=== PATIENT | male | born 1965 | race Two or more races ===

== ENCOUNTER 2016-04-11 20:45 | Emergency (ER) | payer BC, MEDICAID ==
[~2016-04-11] VITALS: Ht 177.8 cm; Wt 81.6 kg
[~2016-04-11 20:45] MED LIST: ATOR10TA PO; CARV12.52 PO; ELET40TA PO; EMTR1TAB12 PO; LORA0.5T PO; PANT40TA4 PO; RALT400T PO
[2016-04-11 23:10] VITALS: BP 169/94
== END 2016-04-11 23:11 | disposition home or self-care (01) ==
LOC: ER 20:51
DX: J06.9 Acute upper respiratory infection, unspecified (principal); I10 Essential (primary) hypertension; Z91.013 Allergy to seafood
CPT/HCPCS: 99282; A4606; Z7610

== ENCOUNTER 2016-08-16 19:48 | Inpatient (IN) | payer SELFPAY ==
[~2016-08-16] VITALS: Ht 172.7 cm; Wt 81.6 kg
--- NOTE | 2016-08-16 19:53 | NUR ---
PT AMBULATORY TO ER BED 11. C/O DIFFUSE ABDOMINAL PAIN W/ N/V/D X TODAY. HX OF BOWEL OBSTRUCTION. LAST VOMITTED THIS AFTERNOON. DENIES ETOH. STABLE VITALS. AWAITING MD WILKES.
--- NOTE | 2016-08-16 20:22 | NUR ---
CLIVE CRUZ AT BEDSIDE FOR EVAL.
[2016-08-16] MEDS ORDERED: IV NS 0.9% 1,000 ML BAG IV ONE (20:30)
[2016-08-16] MEDS ORDERED: HYDROMORPHONE INJ 2 MG/ML DISP.SYRIN IV ONE (20:30)
[2016-08-16] MEDS ORDERED: ONDANSETRON HCL/PF 4 MG/2 ML VIAL IVP ONE (20:30)
[2016-08-16] MEDS ORDERED: IV NS 0.9% 1,000 ML ONE (20:31)
[2016-08-16] MEDS ORDERED: ONDANSETRON HCL/PF 4 MG/2 ML VIAL ONE (20:31)
[2016-08-16] MEDS ORDERED: IV SET PRIMARY 1 EA INFUS.SET MC ONE (20:31)
[2016-08-16] MEDS ORDERED: HYDROMORPHONE 1 MG/1 ML DISP.SYRIN ONE (20:31)
[2016-08-16 20:36] LABS: BASOPHILS % (AUTO) 0.2 % (0.0-2.0); EOSINOPHILS # (AUTO) 0.1 /CMM (0.0-0.7); EOSINOPHILS % (AUTO) 0.7 % (0.0-6.0); HEMATOCRIT 47 % (39-51); HEMOGLOBIN 15.8 g/dL (13.5-17.5); LYMPHOCYTES # (AUTO) 0.9 /CMM (0.8-4.8); LYMPHOCYTES % (AUTO) 10.1 % (20.0-44.0); MEAN CORPUSCULAR HEMOGLOBIN 28 PG (26.0-33.0); MEAN CORPUSCULAR HGB CONC 34 g/dl (31.0-36.0); MEAN CORPUSCULAR VOLUME 84 fL (80-96); MONOCYTES # (AUTO) 0.4 /CMM (0.1-1.30); NEUTROPHILS # (AUTO) 7.5 /CMM (1.8-8.9); PLATELET COUNT (AUTO) 124 /CMM (150-450); RDW COEFFICIENT OF VARIATION 13.7 (11.5-15.0); RED BLOOD CELL COUNT(AUTO) 5.59 MIL/uL (4.5-6.0); WHITE BLOOD COUNT (AUTO) 8.9 K/uL (4.3-11.0)
[2016-08-16 20:53] LABS: ALBUMIN 3.6 g/dL (3.4-5.0); BILIRUBIN,DIRECT 0.2 mg/dL (0.0-0.2); BILIRUBIN,TOTAL 0.7 mg/dL (0.2-1.0); CALCIUM, SERUM 9.1 mg/dL (8.5-10.1); POTASSIUM 4.1 mmol/L (3.5-5.1); TOTAL PROTEIN, SERUM 7.6 g/dL (6.4-8.2)
[2016-08-16] MEDS ORDERED: IV NS 0.9% 250 ML IV ONE (21:11)
[2016-08-16] MEDS ORDERED: CT SWABBABLE VALVE TRANS SET 1 EA INFUS.SET MC ONE (21:12)
[2016-08-16] MEDS ORDERED: IOHEXOL-300 100 ML VIAL IV ONE (21:12)
[2016-08-16] MEDS ORDERED: methylPREDNISolone SOD SUCC 125 MG/2ML VIAL IV ONE (21:30)
[2016-08-16] MEDS ORDERED: diphenhydrAMINE HCL 50 MG/ML VIAL IV ONE (21:30)
[2016-08-16] MEDS ORDERED: methylPREDNISolone SOD SUCC 125 MG/2ML VIAL ONE (21:31)
[2016-08-16] MEDS ORDERED: diphenhydrAMINE HCL 50 MG/ML VIAL ONE (21:31)
--- NOTE | 2016-08-16 21:47 | NUR ---
PT TO RADIOLOGY FOR CT ABDOMEN W. CONTRAST.
--- NOTE | 2016-08-16 22:52 | NUR ---
PAGED ICE BAG ASSEMBLER FOR PANEL ANOOP MOORE NP
--- NOTE | 2016-08-16 23:02 | NUR ---
REPORT GIVEN TO ROSARIO. PT AWAITING TRANSFER TO FLOOR.
[2016-08-16 23:25] VITALS: BP 145/90
[2016-08-16] MEDS ORDERED: ACETAMINOPHEN 325 MG TABLET PO PRN (23:30)
[2016-08-16] MEDS ORDERED: ZOLPIDEM TARTRATE 5 MG TABLET PO PRN (23:30)
[2016-08-16] MEDS ORDERED: MAGNESIUM HYDROXIDE 30 ML UDC PO PRN (23:30)
[2016-08-16] MEDS ORDERED: PANTOPRAZOLE 40 MG VIAL IV SCH (23:30)
[2016-08-17] MEDS ORDERED: IV SET PRIMARY PUMP SET 1 EA INFUS.SET MC ONE (00:09)
[2016-08-17] MEDS ORDERED: PANTOPRAZOLE 40 MG VIAL ONE (00:09)
[2016-08-17] MEDS ORDERED: IV NS 0.9% 1,000 ML ONE (00:09)
[2016-08-17] MEDS: IV NS 0.9% 1,000 ML IV PRN ×2 (00:14→14:25)
[2016-08-17] MEDS ORDERED: HYDROMORPHONE 1 MG/1 ML DISP.SYRIN ONE ×2 (00:34→06:08)
[2016-08-17] MEDS ORDERED: ONDANSETRON HCL/PF 4 MG/2 ML VIAL ONE ×2 (00:34→06:08)
[2016-08-17] MEDS: ONDANSETRON HCL/PF 4 MG/2 ML VIAL IVP PRN ×2 (00:38→06:14)
[2016-08-17] MEDS: HYDROMORPHONE 1 MG/1 ML DISP.SYRIN IV PRN ×2 (00:39→06:14)
--- NOTE | 2016-08-17 06:29 | NUR ---
MS RN NOTES AWAKE & RESPONSIVE. NOT IN ANY DISTRESS. NO SOB NOTED. DENIES ANY PAIN OR DISCOMFORT AT THIS TIME. WITH IVF INFUSING WELL. WITH GT TO LIS DRAINING BROWNISH OUTPUT. CALL LIGHT WITHIN REACH. BED IN LOWEST POSITION. SR UP X 2 FOR SAFETY. WILL ENDORSE TO NEXT SHIFT.
[2016-08-17 06:56] LABS: BASOPHILS % (AUTO) 0.1 % (0.0-2.0); HEMATOCRIT 45 % (39-51); HEMOGLOBIN 14.7 g/dL (13.5-17.5); LYMPHOCYTES # (AUTO) 0.7 /CMM (0.8-4.8); MEAN CORPUSCULAR HEMOGLOBIN 28 PG (26.0-33.0); MEAN CORPUSCULAR HGB CONC 33 g/dl (31.0-36.0); MEAN CORPUSCULAR VOLUME 86 fL (80-96); MONOCYTES % (AUTO) 0.3 % (2.0-12.0); NEUTROPHILS % (AUTO) 90.6 % (43.0-81.0); RDW COEFFICIENT OF VARIATION 14.4 (11.5-15.0); RED BLOOD CELL COUNT(AUTO) 5.28 MIL/uL (4.5-6.0); WHITE BLOOD COUNT (AUTO) 7.7 K/uL (4.3-11.0)
--- NOTE | 2016-08-17 07:05 | NUR ---
MS RN OPENING NOTES RECEIVED PT. FROM NIGHTSHIFT NURSE IN STABLE CONDITION. AWAKE, AND LYING COMFORTABLY IN BED. PT. IS A/O X4. NO SOB OR SIGNS OF DISTRESS AT THIS TIME. DENIES ANY ABDOMINAL PAIN AT THIS TIME. IV PRESENT ON RIGHT FOREARM 18G PATENT AND INTACT INFUSING NS @ 75ML PER HOUR. NGT INTACT TO CONNECTED TO LOW INTERMITTENT SUCTION. BROWN GASTRIC CONTENT PRESENT IN SUCTION CONTAINER. BED IN LOW LOCKED POSITION, SIDE RAILS UP X2, CALL LIGHT WITHIN REACH. WILL CONTINUE TO MONITOR.
[2016-08-17 07:16] LABS: CALCIUM, SERUM 8.7 mg/dL (8.5-10.1); CREATININE 0.9 mg/dL (0.6-1.3); MAGNESIUM 1.9 mg/dL (1.8-2.4); PHOSPHORUS 2.5 mg/dL (2.5-4.9); POTASSIUM 4.4 mmol/L (3.5-5.1)
[2016-08-17 08:00] VITALS: BP 136/86
--- NOTE | 2016-08-17 08:24 | NUR ---
MS RN NOTES LAB CALLED REGARDING LOW PLATELET COUNT OF 36. ROMI THE PRODUCTION STATISTICAL CLERK WAS NOTIFIED. NO NEW ORDERS WERE GIVEN AT THIS TIME. WILL CONTINUE TO MONITOR AND ASSESS FOR SIGNS OF BLEEDING.
[2016-08-17 09:00] VITALS: BP 136/86
[2016-08-17] MEDS ORDERED: EMTRICITABINE/TENOFOVIR 1 TAB PO SCH ×3 (09:00→18:10)
[2016-08-17] MEDS ORDERED: LORAZEPAM 0.5 MG TABLET PO SCH (09:00)
[2016-08-17] MEDS ORDERED: RALTEGRAVIR POTASSIUM 400 MG TABLET PO SCH ×3 (09:00→18:11)
[2016-08-17] MEDS ORDERED: CARVEDILOL 12.5 MG TABLET PO SCH ×2 (09:00)
[2016-08-17] MEDS ORDERED: TIVICAY PO SCH (09:30)
[2016-08-17] MEDS ORDERED: OXCARBAZEPINE 150 MG TABLET PO SCH ×2 (09:30→22:00)
[2016-08-17 10:56] LABS: PLATELET COUNT (AUTO) 194 /CMM (150-450)
--- NOTE | 2016-08-17 11:04 | NUR ---
MS RN NOTES PT.'S LAB WERE REDRAWN TO VERIFY LOW PLATELET COUNT. NEW RESULTS REVEALED A PLATELET COUNT OF 194. ROMI NOTIFIED.
[2016-08-17 13:42] LABS: BAND % (MANUAL) 1 % (0.0-5.0); LYMPHOCYTES % (MANUAL) 9 % (16-48); MONOCYTES % (MANUAL) 1 % (0-11.0); NEUTROPHILS % (MANUAL) 89 (42-76)
--- NOTE | 2016-08-17 17:43 | NUR ---
MS RN NOTES PT. STATED THAT HE DOES NOT WANT THE HIV MEDICATIONS WHICH WERE PRESCRIBED TO HIM HERE AT THE HOSPITAL. THESE MEDS INCLUDE TRUVADA AND ISENTRESS. STATES THAT THE MEDS HE TAKES AT HOME ARE OF A HIGHER CLASS AND WORK BETTER. ALSO STATES THAT BOTH TRUVADA AND ISENTRESS UPSET HIS STOMACH. THE PT. WAS ASKED IF SOMEONE FROM HOME CAN BRING THE MEDS HE TAKES BUT STATES THAT NO ONE WILL BE ABLE TO BRING IT UNTIL WEDNESDAY. ANN FROM PHARMACY CAME UP TO TALK TO THE PT. ABOUT HIS MEDICATIONS. PT. AGREED TO TAKE THE TRUVADA AND ISENTRESS WITH JARED. ROMI APPROVED OF HIM TAKING THESE MEDICATIONS BY MOUTH ALONG WITH HIS ANTI SEIZURE MEDICATION.
[2016-08-17] MEDS ORDERED: ATORVASTATIN 10 MG TABLET PO SCH (18:00)
[2016-08-17] MEDS ORDERED: ONDANSETRON HCL/PF 4 MG/2 ML VIAL IV PRN (18:00)
[2016-08-17] MEDS ORDERED: EMTRICITABINE 200 MG CAPSULE PO SCH (18:12)
[2016-08-17] MEDS ORDERED: TENOFOVIR DISOPROXIL FUMARATE 300 MG TABLET PO SCH (18:13)
--- NOTE | 2016-08-17 18:23 | NUR ---
MS RN NOTES PT. ASKED IF HE CAN WALK AROUND THE UNIT ADVISED BY DR. RUSSELL. WHEN THE NG TUBE WAS DISCONNECTED, HE STATED THAT HE WOULD LIKE IT REMOVED BECAUSE NOTHING IS COMING OUT AND IT MAKES HIM FEEL NAUSEOUS. ROMI WAS PAGED TO ASK IF NG CAN BE REMOVED. AWAITING CALL BACK FROM ROMI
--- NOTE | 2016-08-17 19:30 | NUR ---
MS RN CLOSING NOTES PT. IS REFUSING FURTHER TREATMENTS AT THIS TIME. HE PULLED OUT HIS NG TUBE AGAINST MEDICAL ADVICE AND STATES THAT HE WANTS TO LEAVE AMA. HIV MEDICATIONS HAVE NOT BEEN ADMINISTERED AND WHEN ASKED, PT STATES THAT WHEN HE LEAVES HE WILL TAKE THE RIGHT MEDICATIONS AT HOME. AND CANCER RESEARCHER WERE BOTH NOTIFIED OF PT.S REQUEST TO LEAVE AMA BY SHAUNA THE NIGHTSNMFT NURSE. WILL ENDORSE TO SHAUNA FOR JOSE
== END 2016-08-17 20:00 | disposition left against medical advice (07) | DRG 395 ==
LOC: ER 19:48 → MEDSG2 22:59
PROVIDERS: ADMIT Nurse Practitioner Acute Care; ATTEND Nurse Practitioner Acute Care
DX: K42.0 Umbilical hernia with obstruction, without gangrene (principal); G40.909 Epilepsy, unspecified, not intractable, without status epilepticus; I10 Essential (primary) hypertension; F41.9 Anxiety disorder, unspecified; K57.30 Diverticulosis of large intestine without perforation or abscess without bleeding
CPT/HCPCS: 36415; 80048-TC; 80061-TC; 80076-TC; 82962-TC; 83690-TC; 83735-TC; 84100-TC; 85025-TC; 87081-TC; A4606; C9113; J1170; J1200; J2405; J2930; J7030; J7050; Q9967; Z7610

== ENCOUNTER 2016-10-25 16:00 | Inpatient (IN) | payer SELFPAY ==
[~2016-10-25] VITALS: Ht 167.6 cm; Wt 68.6 kg
[2016-10-25] MEDS ORDERED: ONDANSETRON HCL/PF 4 MG/2 ML VIAL ONE (16:11)
[2016-10-25] MEDS ORDERED: HYDROMORPHONE 1 MG/1 ML DISP.SYRIN ONE (16:11)
[2016-10-25 16:14] LABS: BASOPHILS # (AUTO) 0.5 /CMM (0.0-0.2); BASOPHILS % (AUTO) 4.2 % (0.0-2.0); EOSINOPHILS # (AUTO) 0.1 /CMM (0.0-0.7); EOSINOPHILS % (AUTO) 0.9 % (0.0-6.0); HEMATOCRIT 50 % (39-51); HEMOGLOBIN 16.9 g/dL (13.5-17.5); LYMPHOCYTES # (AUTO) 1.5 /CMM (0.8-4.8); LYMPHOCYTES % (AUTO) 12.3 % (20.0-44.0); MEAN CORPUSCULAR HEMOGLOBIN 28 PG (26.0-33.0); MEAN CORPUSCULAR HGB CONC 34 g/dl (31.0-36.0); MEAN CORPUSCULAR VOLUME 84 fL (80-96); MONOCYTES # (AUTO) 0.5 /CMM (0.1-1.30); MONOCYTES % (AUTO) 3.9 % (2.0-12.0); NEUTROPHILS # (AUTO) 9.3 /CMM (1.8-8.9); NEUTROPHILS % (AUTO) 78.7 % (43.0-81.0); PLATELET COUNT (AUTO) 249 /CMM (150-450); RDW COEFFICIENT OF VARIATION 14.1 (11.5-15.0); RED BLOOD CELL COUNT(AUTO) 5.98 MIL/uL (4.5-6.0); WHITE BLOOD COUNT (AUTO) 11.9 K/uL (4.3-11.0)
--- NOTE | 2016-10-25 16:15 | NUR ---
pt rec'd to er in severe pain abd thrashing , monitors applied iv started 20 left fa labs and cultures done ekg . iv ns bolus given and dilaudid 1 mg ivp zofran 4 mg ivp
[2016-10-25 16:24] LABS: CALCIUM, SERUM 9.7 mg/dL (8.5-10.1); CREATININE 1.3 mg/dL (0.6-1.3)
[2016-10-25 16:29] LABS: ALBUMIN 4.5 g/dL (3.4-5.0); BILIRUBIN,DIRECT 0.1 mg/dL (0.0-0.2); BILIRUBIN,TOTAL 0.6 mg/dL (0.2-1.0); TOTAL PROTEIN, SERUM 8.8 g/dL (6.4-8.2)
--- NOTE | 2016-10-25 16:29 | NUR ---
pt was seen before for smae c/o and seen a surgeon and left ama . pt seems to be quiet and pain 6/10 o2 sarts 100 2n/c 2l
[2016-10-25] MEDS ORDERED: ONDANSETRON HCL/PF 4 MG/2 ML VIAL IVP ONE (16:30)
[2016-10-25] MEDS ORDERED: IV NS 0.9% 1,000 ML BAG IV ONE ×2 (16:30→18:30)
[2016-10-25] MEDS ORDERED: HYDROMORPHONE INJ 2 MG/ML DISP.SYRIN IV ONE (16:30)
[2016-10-25 16:38] LABS: PROTHROMBIN TIME 10.4 SECS (9.5-12.7)
--- NOTE | 2016-10-25 16:53 | NUR ---
pt sent to ct
[2016-10-25] MEDS ORDERED: IOHEXOL-300 100 ML VIAL IV ONE (16:55)
[2016-10-25] MEDS ORDERED: IV NS 0.9% 250 ML IV ONE (16:55)
[2016-10-25] MEDS ORDERED: DOLU50TA PO (17:42)
[2016-10-25] MEDS ORDERED: EMTR1TAB17 PO (17:42)
--- NOTE | 2016-10-25 17:58 | NUR ---
PAGED ANN ARMANDO FOR PANEL ADMISSION
--- NOTE | 2016-10-25 17:59 | NUR ---
ng tube inserted 16fr placement noted to suction dark brown abd softer AWAITING EVALUATION BY ER PROVIDER.
--- NOTE | 2016-10-25 18:01 | NUR ---
xray called for palcement
--- NOTE | 2016-10-25 18:30 | NUR ---
no bolus up 2 nd bag 1000cc
--- NOTE | 2016-10-25 18:58 | NUR ---
INFORMED NURSING POWER PLANT MECHANIC OF NEED FOR M/S BED
--- NOTE | 2016-10-25 19:02 | NUR ---
pt was to be left alone . not able to give ua at this time
--- NOTE | 2016-10-25 20:00 | NUR ---
Patient refused to have the ngt advanced per recommendation in the xr post placement. Per patient, "Please let me regroup. Dont touch the ng tube please." Encouraged the patient x3. Explained risk and benefits of advancing ng tube. Patient still refused. Endorsed to Lacie BRADLEY.
--- NOTE | 2016-10-25 20:09 | NUR ---
Report given to Lacie BRADLEY for rios.
--- NOTE | 2016-10-25 20:16 | NUR ---
MS/RN NOTES RECEIVED PT. FROM ER VIA CARL. PT. IS AWAKE, ALERT AND ORIENTED X3. BREATHING EVEN AND UNLABORED. NO SOB, RESPIRATORY DISTRESS OR COMPLAINTS OF PAIN NOTED AT THIS TIME. ORIENTED PT. TO ROOM. PT. WITH NG TUBE PRESENT TO RIGHT NARE. PT. DOES NOT WANT NG-TUBE TO BE TOUCHED AT THIS TIME. PT. WITH LEFT FOREARM 20 GAUGE IV SALINE LOCK PRESENT, PATENT AND INTACT. BED IN LOWEST POSITION, CALL LIGHT WITHIN REACH. AWAITING ADMITTING ORDERS. WILL CONTINUE TO MONITOR.
--- NOTE | 2016-10-25 20:35 | NUR ---
MS/RN NOTES PT. REFUSING BODY CHECK. PT. STATES HE WANTS TO BE LEFT ALONE TO SLEEP. WILL ATTEMPT AGAIN AT A LATER TIME. PT. APPEARS COMFORTABLE AT THE MOMENT. WILL CONTINUE TO MONITOR.
--- NOTE | 2016-10-25 21:24 | NUR ---
MS/RN NOTES [facility]ED [facility] AND SPOKE WITH SEEMA COLON. AWAITING ADMISSION ORDERS. WILL CONTINUE TO MONITOR.
[2016-10-25 22:00] VITALS: BP 166/96
[2016-10-25] MEDS ORDERED: Z GUARD REMEDY 2 OZ OINT TP PRN (22:30)
[2016-10-25] MEDS ORDERED: ACETAMINOPHEN 325 MG TABLET PO PRN (22:30)
[2016-10-25] MEDS ORDERED: HYDROMORPHONE INJ 2 MG/ML DISP.SYRIN IV PRN (22:30)
[2016-10-25] MEDS ORDERED: LORAZEPAM INJ 2 MG/ML VIAL IV PRN (22:30)
[2016-10-25] MEDS ORDERED: BISACODYL SUPP (10 MG) 10 MG/SUPP.RECT SUPP.RECT RC PRN (22:30)
[2016-10-25] MEDS ORDERED: ONDANSETRON HCL/PF 4 MG/2 ML VIAL IVP PRN (22:30)
--- NOTE | 2016-10-25 23:10 | NUR ---
MS/RN NOTES EXPLAINED AND EDUCATED PT. ABOUT MD ORDER TO FURTHER INSERT NG-TUBE TO PROPER POSITIONING AND CONNECTING NG-TUBE TO SUCTION. OFFERED PT. PRN MEDICATION PRIOR TO FURTHER INSERTING NG-TUBE. PT. REFUSING FURTHER NG-TUBE INSERTION. PT. REFUSING TO LET NURSE TOUCH NG-TUBE. PT. IS UPSET AND WANTS TO BE LEFT ALONE. WILL CONTINUE TO MONITOR.
[2016-10-26] MEDS ORDERED: IV PREMIX D5 1/2NS + KCL 1,000 ML IV ONE (00:48)
--- NOTE | 2016-10-26 01:15 | NUR ---
MS/RN NOTES PT. CONTINUES TO REFUSE TO HAVE HIS NG-TUBE FURTHER INSERTED. PT. STATED "IT DOESN'T NEED TO BE TOUCHED, ITS OK, JUST LEAVE ME ALONE". PT. HAS NO COMPLAINTS OF PAIN, NAUSEA OR VOMITING AT THIS TIME. WILL ATTEMPT AGAIN AT A LATER TIME. WILL CONTINUE TO MONITOR.
[2016-10-26] MEDS: Potassium Chloride 20 MEQ in IV D5/0.45 NACL 1,000 ML IV PRN ×2 (01:36→17:55)
--- NOTE | 2016-10-26 06:43 | NUR ---
MS/RN NOTES PT. IS LYING IN BED RESTING. EASILY AROUSABLE TO NAME. BREATHING EVEN AND UNLABORED. NO SOB, RESPIRATORY DISTRESS OR COMPLAINTS OF PAIN NOTED AT THIS TIME. PT. WITH NG TUBE PRESENT TO RIGHT NARE. PT. DOES NOT WANT NG-TUBE TO BE TOUCHED AT THIS TIME. PT. CONTINUES TO REFUSE FURTHER INSERTING NG-TUBE INTO PROPER POSITION. PT. IS REFUSING BLOOD DRAW FOR LABS STATING HE WANTS TO SPEAK TO THE DOCTOR FIRST. EDUCATED PT. ON IMPORTANCE OF OBTAINING BLOOD FOR LABS. PT. CONTINUES TO REFUSE. PT. WITH LEFT FOREARM 20 GAUGE PERIPHERAL IV PRESENT, PATENT AND INTACT ADMINISTERING TO PT. D5 1/2 NS WITH 20 MEQ KCL @ 100 ML/HR. ALL PT. NEEDS MET. BED IN LOWEST POSITION, CALL LIGHT WITHIN REACH. AWAITING ADMITTING ORDERS. WILL CONTINUE TO MONITOR. Addendum: 10/26/16 at 0649 by VIJI YUAN RN WILL ENDORSE TO [facility] NURSE FOR CONTINUITY OF CARE.
--- NOTE | 2016-10-26 07:18 | NUR ---
MS/RN OPENING NOTES PATIENT RECEIVED RESTING IN BED IN NO ACUTE SIGNS OF DISTRESS. A/O X 3 AND VERBALLY RESPONSIVE, NO C/O VOICED AT THIS TIME. ON 02 VIA N/C AT 2LPM, BREATHING EVEN AND UNLABORED. PT. WITH NG-TUBE TO RIGHT NARE AND NEEDS TO BE ADVANCED FOR 10-15CM TO ENSURE PROPER PLACEMENT BUT PT DIDN'T WANT NG-TUBE TO BE TOUCHED AT THIS TIME. IV ACCESS ON LFA G#20, PATENT AND INTACT WITH D5 1/2 NS WITH 20 MEQ KCL @ 100 ML/HR INFUSING, NO SIGNS OF INFILTRATION NOTED. PT STILL REFUSING BLOOD DRAW FOR LABS DESPITE COUNSELING ON THE IMPORTANCE OF OBTAINING BLOOD FOR LABS, STATED HE WANTS TO SPEAK TO THE DOCTOR FIRST. BED IN LOWEST POSITION AND LOCKED, CALL LIGHT WITHIN REACH. WILL CONTINUE TO MONITOR PT ACCORDINGLY.
[2016-10-26 08:00] VITALS: BP 152/89
[2016-10-26] MEDS: PANTOPRAZOLE 40 MG VIAL IV SCH (08:17)
[2016-10-26] MEDS ORDERED: DIATR MEGLU/DIATRIZOATE SODIUM 120 ML BOTTLE (GASTROGRAPHIN) ONE (09:37)
[2016-10-26] MEDS ORDERED: BARIUM SULFATE 98% 135 ML SUSP.RECON PO ONE (09:37)
--- NOTE | 2016-10-26 10:07 | NUR ---
PATIENT BROUGHT DOWN FOR SMALL BOWEL FOLLOW THROUGH. SALES INCENTIVE ANALYST KUB WAS DONE AND WAS FOUND THAT NGT NEEDED TO BE ADVANCED, PER RADIOLOGIST. PATIENT REFUSING TO CONTINUE WITH EXAM UNTIL HE SPEAKS WITH ORDERING PHYSICIAN. RN AWARE.
--- NOTE | 2016-10-26 13:36 | NUR ---
RN NOTES PATIENT WENT FOR X-RAY OF SMALL BOWEL FOLLOW THROUGH AFTER ADVANCING ABOUT 12CM OF NG-TUBE TO RIGHT NARE. RESULTS STILL PENDING WILL FOLLOW-UP.
[2016-10-26 14:48] LABS: BASOPHILS % (AUTO) 0.1 % (0.0-2.0); EOSINOPHILS # (AUTO) 0.2 /CMM (0.0-0.7); EOSINOPHILS % (AUTO) 1.8 % (0.0-6.0); HEMATOCRIT 45 % (39-51); HEMOGLOBIN 14.6 g/dL (13.5-17.5); LYMPHOCYTES # (AUTO) 1.1 /CMM (0.8-4.8); LYMPHOCYTES % (AUTO) 12.3 % (20.0-44.0); MEAN CORPUSCULAR HEMOGLOBIN 28 PG (26.0-33.0); MEAN CORPUSCULAR HGB CONC 33 g/dl (31.0-36.0); MEAN CORPUSCULAR VOLUME 85 fL (80-96); MONOCYTES # (AUTO) 0.7 /CMM (0.1-1.30); MONOCYTES % (AUTO) 7.8 % (2.0-12.0); NEUTROPHILS # (AUTO) 6.9 /CMM (1.8-8.9); PLATELET COUNT (AUTO) 214 /CMM (150-450); RDW COEFFICIENT OF VARIATION 15.2 (11.5-15.0); RED BLOOD CELL COUNT(AUTO) 5.21 MIL/uL (4.5-6.0); WHITE BLOOD COUNT (AUTO) 8.8 K/uL (4.3-11.0)
[2016-10-26 15:41] LABS: THYROID STIMULATING HORMONE 0.438 uIU/mL (0.358-3.74)
[2016-10-26 15:57] LABS: BILIRUBIN,TOTAL 0.6 mg/dL (0.2-1.0); PHOSPHORUS 2.3 mg/dL (2.5-4.9); POTASSIUM 4.3 mmol/L (3.5-5.1); TOTAL PROTEIN, SERUM 7.2 g/dL (6.4-8.2)
[2016-10-26 16:00] VITALS: BP_SYST 151; BP_DIAS 86; BP_DIAS 88
[2016-10-26 16:04] LABS: ALBUMIN 3.3 g/dL (3.4-5.0); CALCIUM, SERUM 8.4 mg/dL (8.5-10.1); MAGNESIUM 2.3 mg/dL (1.8-2.4)
--- NOTE | 2016-10-26 17:07 | NUR ---
RN NOTES SPOKE TO DR ARMANDO REGARDING PT'S X-RAY OF SMALL BOWEL RESULTS WHICH IS NEGATIVE FOR OBSTRUCTION. HE ORDERED TO REMOVE NG-TUBE AND START ON CLEAR LIQUID DIET, ORDERED CARRIED OUT. WILL CONTINUE TO MONITOR.
--- NOTE | 2016-10-26 18:40 | NUR ---
MS/RN CLOSING NOTES PATIENT ASLEEP IN BED AT THIS TIME, EASILY AWAKENS. A/O X 3 AND VERBALLY RESPONSIVE. HOB KEPT ELEVATED. ON 02 VIA N/C AT 2LPM, BREATHING EVEN AND UNLABORED WITH NO SOB NOTED. IV ACCESS ON LFA G#20, PATENT AND INTACT WITH D5 1/2 NS WITH 20 MEQ KCL @ 100 ML/HR INFUSING WELL, NO SIGNS OF INFILTRATION NOTED. BED IN LOWEST POSITION AND LOCKED, CALL LIGHT WITHIN REACH. ALL NEEDS AND CARE ATTENDED WELL. WILL ENDORSED TO FRUIT PEELER NURSE FOR JOSE.
--- NOTE | 2016-10-26 19:30 | NUR ---
MS RN INITIAL NOTE RECEIVED PT AWAKE AND ALERT, ORIENTED X3, NORCO LAST GIVEN AT 1800, PT CONFIRMS THAT IS HAS BEEN EFFECTIVE FOR HER BACK PAIN, NO RESPIRATORY DISTRESS NOTED DURING PHYSICAL ASSESSMENT, PT IS COMFORTABLE AND COOPERATIVE WITH CARE, SHE IS AMBULATORY WITH ASSIST AND ABLE TO USE THE BEDSIDE COMMODE, SHE IS CLEAN/DRY AND ALL NEEDS HAVE BEEN ATTENDED TO, SAFETY MEASURES WILL BE MAINTAINED AT ALL TIMES, WILL CONTINUE TO MONITOR CLOSELY. Addendum: 10/26/16 at 1957 by SHELLIE BERMAN RN NOTE ENTERED BY MISTAKE ON WRONG PT.
--- NOTE | 2016-10-26 19:40 | NUR ---
ms/rn opening notes patient in bed, asleep but awakes and respond w/ no s/s of discomfort. No grimace and no guarding. Denies pain at this time. no s/s of discomfort. On iv fluids potassium chloride 20 meq at 10ml/hr. will continue to monitor for any changes. lab result received regarding preliminary result of blood culture at gram positive cocci. will follow up w/ md for any order.
[2016-10-26 20:00] VITALS: BP 146/82
--- NOTE | 2016-10-26 21:00 | NUR ---
MS/RN NOTES MD CONTACTED ( Joana Mckeon) regarding latest preliminary result blood culture #1 with Gram positive cocci. No md order at this time.
[2016-10-27 03:04] VITALS: BP 143/103
--- NOTE | 2016-10-27 03:05 | NUR ---
ms/rn notes Patient observed moaning, stated some headache, checked b/p at 143/103, pulse 54, oxygen at 2 liter 100" no fever, respiration at 19. stated" Do not want to take any meds at this time" Resting and able to sleep, stated "I feek ok".
[2016-10-27] MEDS: Potassium Chloride 20 MEQ in IV D5/0.45 NACL 1,000 ML IV PRN (03:15)
--- NOTE | 2016-10-27 04:55 | NUR ---
ms/rn notes patient observed guarding and reported to have headache, requested for tylenol 650mg po. will monitor.
--- NOTE | 2016-10-27 06:14 | NUR ---
ms/rn closing notes Patient able to sleep during the night. Alert, oriented x3. Can verbalize needs and provided as needed medication for dizziness.(Tylenol 650mg po_Had 3 bm(loose stools), continent and can tolerate clear liquids, provided 4 jello during the night.IV fluids D51/2 ns at 100ml/Will endorse to am rn tegarding plan of care.
--- NOTE | 2016-10-27 07:15 | NUR ---
MS/RN OPENING NOTES PATIENT RECEIVED ASLEEP IN BED, EASILY AWAKENS. A/O X 3, NO C/O PAIN OR DISCOMFORTS AT THIS TIME. HOB KEPT ELEVATED. ON 02 VIA N/C AT 2LPM, BREATHING EVEN AND UNLABORED. IV ACCESS ON LFA G#20, PATENT AND INTACT WITH D5 1/2 NS WITH 20 MEQ KCL @ 100 ML/HR INFUSING WELL, NO SIGNS OF INFILTRATION NOTED. BED IN LOWEST POSITION AND LOCKED, CALL LIGHT WITHIN REACH. WILL CONTINUE TO MONITOR PT ACCORDINGLY.
[2016-10-27 08:00] VITALS: BP_SYST 144; BP_SYST 149; BP_DIAS 87
[2016-10-27] MEDS: PANTOPRAZOLE 40 MG VIAL IV SCH (08:59)
[2016-10-27 16:01] VITALS: BP 157/93
--- NOTE | 2016-10-27 17:05 | NUR ---
MS PARTS DEPARTMENT SUPERVISOR NOTES PATIENT DISCHARGED HOME IN STABLE CONDITION. ALERT AND ORIENTED X4 AND VERBALLY RESPONSIVE WITH NO C/O PAIN OR DISCOMFORTS DURING DISCHARGE. HE LEFT UNIT AMBULATORY AT 1625H. V/S TAKEN AND RECORDED. SKIN IS INTACT. IV ACCESS REMOVED. BELONGINGS CHECKED, COUNTED AND SIGNED FORM. SMOKING CESSATION AND HEALTH TEACHINGS GIVEN, PT VERBALIZED UNDERSTANDING. MD AND CHARGE NURSE AWARE OF DISCHARGE.
== END 2016-10-27 16:26 | disposition home or self-care (01) | DRG 388 ==
LOC: ER 16:02 → MED 19:55
PROVIDERS: ADMIT Nurse Practitioner Acute Care; ATTEND Nurse Practitioner Acute Care
DX: K56.60 Unspecified intestinal obstruction (principal); N17.0 Acute kidney failure with tubular necrosis; B20 Human immunodeficiency virus [HIV] disease; E66.9 Obesity, unspecified; E86.0 Dehydration; F17.200 Nicotine dependence, unspecified, uncomplicated; G40.909 Epilepsy, unspecified, not intractable, without status epilepticus
CPT/HCPCS: 36415; 71010-TC; 74250-TC; 80048-TC; 80053-TC; 80061-TC; 80076-TC; 83540-TC; 83605-TC; 83690-TC; 83735-TC; 84100-TC; 84443-TC; 85025-TC; 85652-TC; 85730-TC; 87040-TC; 87081-TC; 94799-TC; A4606; C9113; G0480; J1170; J2060; J2405; J3480; J3490; J7030; J7050; Q9963; Q9967; Z7610

== ENCOUNTER 2017-03-31 20:10 | Emergency (ER) | payer MEDICAID ==
[~2017-03-31] VITALS: Ht 175.3 cm; Wt 81.6 kg
[~2017-03-31 20:10] MED LIST changes: +DOLU50TA PO; -EMTR1TAB12 PO; +EMTR1TAB17 PO; -LORA0.5T PO; -RALT400T PO
[2017-03-31 20:51] VITALS: BP 154/97
--- NOTE | 2017-03-31 20:52 | NUR ---
PT BIBSELF AMBULATORY TO ER BED 6. PT STATES "MY HERNIA POPPED" S/P LIFTING OBJECT X YESTERDAY, UMBILICAL HERNIA NAUSEA, NO VOMITING, LBM X 2 HRS AGO. PT AOX3 RR EVEN AND UNLABORED. NO SOB NOTED. NAD NOTED. NO NVD AT THIS TIME. PT GOWNED AND PLACED ON MONITOR WAITING FOR MD WILKES.
== END 2017-03-31 21:30 | disposition home or self-care (01) ==
LOC: ER 20:13
DX: R10.9 Unspecified abdominal pain (principal); I10 Essential (primary) hypertension; F17.200 Nicotine dependence, unspecified, uncomplicated; Z91.013 Allergy to seafood
CPT/HCPCS: A4606; Z7610

== ENCOUNTER 2017-09-04 10:24 | Emergency (ER) | payer MEDICAID, OTHER ==
[~2017-09-04] VITALS: Ht 165.1 cm; Wt 83.9 kg
[2017-09-04 10:25] VITALS: BP 150/105
[2017-09-04] MEDS ORDERED: SUMATRIPTAN SUCCINATE 6 MG/0.5 ML VIAL SQ ONE ×2 (11:38→12:00)
[2017-09-04] MEDS ORDERED: diphenhydrAMINE HCL 50 MG/ML VIAL ONE (11:38)
[2017-09-04] MEDS ORDERED: KETOROLAC TROMETHAMINE INJ 30 MG/ML VIAL ONE (11:38)
[2017-09-04] MEDS ORDERED: ONDANSETRON 4 MG TAB.RAPDIS ONE (11:39)
[2017-09-04] MEDS ORDERED: diphenhydrAMINE HCL 50 MG/ML VIAL IM ONE (12:00)
[2017-09-04] MEDS ORDERED: KETOROLAC TROMETHAMINE INJ 60 MG/2 ML VIAL IM ONE (12:00)
[2017-09-04] MEDS ORDERED: ONDANSETRON 4 MG TAB.RAPDIS SL ONE (12:00)
== END 2017-09-04 12:41 | disposition home or self-care (01) ==
LOC: ER 10:30
DX: G43.909 Migraine, unspecified, not intractable, without status migrainosus (principal); K42.9 Umbilical hernia without obstruction or gangrene; I10 Essential (primary) hypertension; F17.200 Nicotine dependence, unspecified, uncomplicated; Z91.013 Allergy to seafood
CPT/HCPCS: A4606; J1200; J1885; J3030; Q0162; Z7610

== ENCOUNTER 2017-10-31 20:59 | Emergency (ER) | payer MEDICAID ==
[~2017-10-31] VITALS: Ht 175.3 cm; Wt 86.2 kg
[2017-10-31 21:16] VITALS: BP 155/96
== END 2017-10-31 22:03 | disposition home or self-care (01) ==
LOC: ER 21:01
DX: H83.3X2 Noise effects on left inner ear (principal); I10 Essential (primary) hypertension; K56.609 Unspecified intestinal obstruction, unspecified as to partial versus complete obstruction; F17.200 Nicotine dependence, unspecified, uncomplicated; Z91.013 Allergy to seafood
CPT/HCPCS: 69209; 99282; A4606; Z7610

== ENCOUNTER 2017-11-16 16:38 | Emergency (ER) | payer MEDICAID ==
[~2017-11-16] VITALS: Ht 175.3 cm; Wt 93.0 kg
--- NOTE | 2017-11-16 16:50 | NUR ---
AAOX3, BIB DR CUNHA C/O SEVERE ABDOMINAL PAIN AND VOMITING. RESP IS EVEN AND UNLABORED WITH NAD NOTED. SKIN IS WARM AND DRY. PLACED ON THE MONITOR. AWAITING MD FOR EVAL.
[2017-11-16] MEDS ORDERED: IV NS 0.9% 1,000 ML BAG IV ONE (17:00)
[2017-11-16] MEDS ORDERED: MORPHINE SULFATE INJ 2 MG/ML DISP.SYRIN IV ONE (17:00)
[2017-11-16] MEDS ORDERED: ONDANSETRON HCL/PF 4 MG/2 ML VIAL IVP ONE (17:00)
[2017-11-16] MEDS ORDERED: ONDANSETRON HCL/PF 4 MG/2 ML VIAL ONE (17:03)
[2017-11-16] MEDS ORDERED: MORPHINE SULFATE INJ 4 MG/ML DISP.SYRIN ONE (17:03)
[2017-11-16 17:27] LABS: BASOPHILS # (AUTO) 0.1 /CMM (0.0-0.2); BASOPHILS % (AUTO) 0.7 % (0.0-2.0); EOSINOPHILS % (AUTO) 0.6 % (0.0-6.0); HEMATOCRIT 50 % (39-51); HEMOGLOBIN 16.5 g/dL (13.5-17.5); LYMPHOCYTES # (AUTO) 1.9 /CMM (0.8-4.8); LYMPHOCYTES % (AUTO) 18.1 % (20.0-44.0); MEAN CORPUSCULAR HEMOGLOBIN 28 PG (26.0-33.0); MEAN CORPUSCULAR HGB CONC 33 g/dl (31.0-36.0); MEAN CORPUSCULAR VOLUME 84 fL (80-96); MONOCYTES # (AUTO) 0.6 /CMM (0.1-1.30); MONOCYTES % (AUTO) 5.5 % (2.0-12.0); NEUTROPHILS # (AUTO) 7.6 /CMM (1.8-8.9); NEUTROPHILS % (AUTO) 75.1 % (43.0-81.0); PLATELET COUNT (AUTO) 195 /CMM (150-450); RDW COEFFICIENT OF VARIATION 13.9 (11.5-15.0); RED BLOOD CELL COUNT(AUTO) 5.99 MIL/uL (4.5-6.0); WHITE BLOOD COUNT (AUTO) 10.3 K/uL (4.3-11.0)
[2017-11-16 17:44] LABS: CALCIUM, SERUM 10.7 mg/dL (8.5-10.1); CARBON DIOXIDE 32 mmol/L (21-32); CHLORIDE 102 mmol/L (98-107); CREATININE 1.3 mg/dL (0.6-1.3); GLUCOSE 120 mg/dL (74-106); POTASSIUM 4.1 mmol/L (3.5-5.1); SODIUM SERUM 140 mmol/L (136-145); UREA NITROGEN, BLOOD 17 mg/dL (7-18)
[2017-11-16 17:46] LABS: INR 0.96 (0.85-1.15)
[2017-11-16 17:51] LABS: ALANINE AMINOTRANSFERASE 22 U/L (12-78); ALBUMIN 4.7 g/dL (3.4-5.0); ALKALINE PHOSPHATASE 87 U/L (46-116); ASPARTATE AMINOTRANSFERASE 15 U/L (15-37); BILIRUBIN,DIRECT 0.2 mg/dL (0.0-0.2); LIPASE 134 U/L (73-393); TOTAL PROTEIN, SERUM 8.8 g/dL (6.4-8.2)
[2017-11-16 17:52] LABS: TROPONIN I < 0.017 ng/mL (0.00-0.056)
[2017-11-16] MEDS ORDERED: CT SWABBABLE VALVE TRANS SET 1 EA INFUS.SET MC ONE (17:56)
[2017-11-16] MEDS ORDERED: IOHEXOL-300 100 ML VIAL IV ONE (17:56)
--- NOTE | 2017-11-16 18:03 | NUR ---
PATIENT TRANSPORTED FOR CT VIA GURNEY. PATIENT REMAINS IN STABLE CONDITION AT THIS TIME.
--- NOTE | 2017-11-16 19:01 | NUR ---
REPORT GIVEN TO MIRNA TARIQ FOR JOSE.
[2017-11-16 19:30] VITALS: BP 142/92
== END 2017-11-16 19:30 | disposition home or self-care (01) ==
LOC: ER 16:39
DX: K46.9 Unspecified abdominal hernia without obstruction or gangrene (principal); R11.2 Nausea with vomiting, unspecified; I10 Essential (primary) hypertension; F17.200 Nicotine dependence, unspecified, uncomplicated; Z60.2 Problems related to living alone; Z79.899 Other long term (current) drug therapy; Z91.013 Allergy to seafood
CPT/HCPCS: 36415; 74177; 80048; 80076; 83690; 84484; 85025; 85730; 93005; 96361; 96374; 96375; 99285; A4606; G0480; J2270; J2405; J7030; Q9967; Z7610

== ENCOUNTER 2018-07-03 21:20 | Emergency (ER) | payer MEDICAID ==
[~2018-07-03] VITALS: Ht 175.3 cm; Wt 91.6 kg
[2018-07-03 21:32] VITALS: BP 166/110
[2018-07-03] MEDS ORDERED: IBUPROFEN 600 MG TABLET PO ONE ×2 (21:58→22:00)
[2018-07-03] MEDS ORDERED: AMOX/CLAVULANATE 875 MG TABLET ONE (21:58)
[2018-07-03] MEDS ORDERED: AMOX/CLAVULANATE 875 MG TABLET PO ONE (22:00)
== END 2018-07-03 22:05 | disposition home or self-care (01) ==
LOC: ER 21:25
DX: K02.9 Dental caries, unspecified (principal); F20.9 Schizophrenia, unspecified; I10 Essential (primary) hypertension; F17.200 Nicotine dependence, unspecified, uncomplicated; Z98.890 Other specified postprocedural states; Z60.2 Problems related to living alone; Z91.013 Allergy to seafood

== ENCOUNTER 2018-09-18 23:01 | Emergency (ER) | payer MEDICAID ==
[~2018-09-18] VITALS: Ht 175.3 cm; Wt 93.0 kg
[2018-09-18 23:11] VITALS: BP 138/82
[2018-09-18] MEDS ORDERED: CEPHALEXIN MONOHYDRATE 500 MG CAPSULE PO ONE (23:40)
[2018-09-19] MEDS ORDERED: CEPHALEXIN MONOHYDRATE 500 MG CAPSULE PO ONE
== END 2018-09-18 23:45 | disposition home or self-care (01) ==
LOC: ER 23:03
DX: L03.311 Cellulitis of abdominal wall (principal); I10 Essential (primary) hypertension; F17.200 Nicotine dependence, unspecified, uncomplicated; Z98.890 Other specified postprocedural states; Z91.030 Bee allergy status; Z91.013 Allergy to seafood; Z60.2 Problems related to living alone; Z79.899 Other long term (current) drug therapy

== ENCOUNTER 2018-12-11 19:37 | Emergency (ER) | payer MEDICAID ==
[~2018-12-11] VITALS: Ht 175.3 cm; Wt 89.8 kg
[2018-12-11 19:45] VITALS: BP 163/117
[2018-12-11] MEDS ORDERED: HYDROCODONE/APAP 10/325MG 1 EA TABLET ONE (20:26)
[2018-12-11] MEDS ORDERED: IBUPROFEN 400 MG TABLET ONE (20:26)
[2018-12-11] MEDS ORDERED: AMOX/CLAVULANATE 875 MG TABLET ONE (20:26)
[2018-12-11] MEDS ORDERED: HYDROCODONE/APAP 10/325MG 1 EA TABLET PO ONE (20:30)
[2018-12-11] MEDS ORDERED: AMOX/CLAVULANATE 875 MG TABLET PO ONE (20:30)
[2018-12-11] MEDS ORDERED: IBUPROFEN 400 MG TABLET PO ONE (20:30)
== END 2018-12-11 20:36 | disposition home or self-care (01) ==
LOC: ER 19:43
DX: K08.89 Other specified disorders of teeth and supporting structures (principal); I10 Essential (primary) hypertension; F17.200 Nicotine dependence, unspecified, uncomplicated; Z98.890 Other specified postprocedural states; Z91.030 Bee allergy status; Z91.013 Allergy to seafood; Z60.2 Problems related to living alone; Z79.899 Other long term (current) drug therapy

== ENCOUNTER 2019-07-29 19:17 | Emergency (ER) | payer MEDICAID ==
[~2019-07-29] VITALS: Ht 175.3 cm; Wt 90.7 kg
[2019-07-29 19:23] VITALS: BP 154/97
--- NOTE | 2019-07-29 19:44 | NUR ---
EMT AT BEDSIDE FOR VELCRO SPLINT
== END 2019-07-29 19:46 | disposition home or self-care (01) ==
LOC: ER 19:23
DX: G56.01 Carpal tunnel syndrome, right upper limb (principal); F17.210 Nicotine dependence, cigarettes, uncomplicated; R56.9 Unspecified convulsions; I10 Essential (primary) hypertension; Z98.890 Other specified postprocedural states; Z91.013 Allergy to seafood; Z91.030 Bee allergy status; Z79.899 Other long term (current) drug therapy

== ENCOUNTER 2020-01-30 07:51 | Emergency (ER) | payer MEDICAID ==
[~2020-01-30] VITALS: Ht 175.3 cm; Wt 90.7 kg
[~2020-01-30 07:51] MED LIST changes: -PANT40TA4 PO; +PANT40TA49 PO
--- NOTE | 2020-01-30 07:55 | NUR ---
PT came to ER with c/o fever and chills since last night. no cough at this time. awaiting for MD hernandez
[2020-01-30] MEDS ORDERED: IBUPROFEN 600 MG TABLET ONE (08:23)
[2020-01-30] MEDS ORDERED: ACETAMINOPHEN ES 500 MG TABLET ONE (08:23)
[2020-01-30] MEDS ORDERED: IV NS 0.9% 1,000 ML BAG IV ONE (08:30)
[2020-01-30] MEDS ORDERED: IBUPROFEN 600 MG TABLET PO ONE (08:30)
[2020-01-30] MEDS ORDERED: ACETAMINOPHEN ES 500 MG TABLET PO ONE (08:30)
--- NOTE | 2020-01-30 08:52 | NUR ---
FLU AND COVID SWAB DONE AND SENT TO LAB
[2020-01-30 09:15] LABS: BASOPHILS % (AUTO) 0.4 % (0.0-2.0); EOSINOPHILS % (AUTO) 0.7 % (0.0-6.0); HEMATOCRIT 42 % (39-51); HEMOGLOBIN 13.8 g/dL (13.5-17.5); LYMPHOCYTES # (AUTO) 0.7 /CMM (0.8-4.8); LYMPHOCYTES % (AUTO) 14.5 % (20.0-44.0); MEAN CORPUSCULAR HGB CONC 33 g/dl (31.0-36.0); MEAN CORPUSCULAR VOLUME 84 fL (80-96); MONOCYTES # (AUTO) 0.6 /CMM (0.1-1.30); MONOCYTES % (AUTO) 12.4 % (2.0-12.0); NEUTROPHILS # (AUTO) 3.6 /CMM (1.8-8.9); PLATELET COUNT (AUTO) 123 /CMM (150-450); RED BLOOD CELL COUNT(AUTO) 4.94 MIL/uL (4.5-6.0); WHITE BLOOD COUNT (AUTO) 4.9 K/uL (4.3-11.0)
[2020-01-30 09:25] LABS: CALCIUM, SERUM 8.8 mg/dL (8.5-10.1); CREATININE 1.2 mg/dL (0.6-1.3); POTASSIUM 4.2 mmol/L (3.5-5.1)
[2020-01-30 11:35] VITALS: BP 120/65
== END 2020-01-30 11:36 | disposition home or self-care (01) ==
LOC: ER 07:54
DX: B34.9 Viral infection, unspecified (principal); R50.9 Fever, unspecified; R06.02 Shortness of breath; Z20.828 Contact with and (suspected) exposure to other viral communicable diseases; Z91.030 Bee allergy status; Z91.013 Allergy to seafood; I10 Essential (primary) hypertension; G40.909 Epilepsy, unspecified, not intractable, without status epilepticus; Z79.899 Other long term (current) drug therapy; F17.200 Nicotine dependence, unspecified, uncomplicated
CPT/HCPCS: 36415; 71045; 80048; 85025; 87040 ×2; 87426; 87804; 96360; 99284; C9803; J7030

== ENCOUNTER 2020-10-17 14:44 | Emergency (ER) | payer MEDICAID ==
[~2020-10-17] VITALS: Ht 172.7 cm; Wt 88.5 kg
[2020-10-17 15:10] VITALS: BP 140/95
--- NOTE | 2020-10-17 15:17 | NUR ---
Patient came in to the er c/o BLE edema, on room air, breathing evenly and unlabored. Connected to the monitor and pulse ox. Kept comfortable, will continue to monitor accordingly.
[2020-10-17] MEDS ORDERED: CEPH500C2 PO (15:29)
[2020-10-17] MEDS ORDERED: SULF1TAB48 PO (15:29)
--- NOTE | 2020-10-17 15:36 | NUR ---
Patient discharged to home in stable condition. Written and verbal after care instructions given. Patient verbalizes understanding of instruction.
== END 2020-10-17 15:36 | disposition home or self-care (01) ==
LOC: ER 14:45
DX: L03.116 Cellulitis of left lower limb (principal); L03.115 Cellulitis of right lower limb; I10 Essential (primary) hypertension; F17.200 Nicotine dependence, unspecified, uncomplicated; Z98.890 Other specified postprocedural states; Z91.030 Bee allergy status; Z91.013 Allergy to seafood; Z79.899 Other long term (current) drug therapy

== ENCOUNTER 2021-11-26 01:11 | Emergency (ER) | payer MEDICAID ==
[~2021-11-26] VITALS: Ht 175.3 cm; Wt 95.3 kg
[~2021-11-26 01:11] MED LIST changes: +CEPH500C2 PO; +SULF1TAB48 PO
--- NOTE | 2021-11-26 01:36 | NUR ---
BIBS. TO ER BED 7. AAOX4. NOT IN RESP DISTRESS. AMBUALTORY W/ CANE ON STEADY GAIT. CAME IN FOR BILAT SHOULDER PAIN X TODAY. PER PT RIGHT IS MORE PAINFUL THAN LEFT. PAIN IS 10/10 LIMITED ROM D/T PAIN. DENIES ANY TRAUMA. AWAITING MD FOR EVAL
[2021-11-26] MEDS ORDERED: KETOROLAC TROMETHAMINE INJ 30 MG/ML VIAL IM ONE (02:30)
--- NOTE | 2021-11-26 02:35 | NUR ---
COVID SWAB AND INFLUENZA SWAB DONE AND SENT TO LAB
[2021-11-26] MEDS ORDERED: KETOROLAC TROMETHAMINE INJ 30 MG/ML VIAL ONE (02:48)
--- NOTE | 2021-11-26 04:42 | NUR ---
FOLLOWED UP WITH STAT RAD
[2021-11-26 05:00] VITALS: BP 127/70
[2021-11-26] MEDS ORDERED: CYCL5TAB PO (05:22)
[2021-11-26] MEDS ORDERED: IBUP-1957 PO (05:22)
--- NOTE | 2021-11-26 05:39 | NUR ---
Patient discharged to home in stable condition. Written and verbal after care instructions given. Patient verbalizes understanding of instruction.
== END 2021-11-26 05:40 | disposition home or self-care (01) ==
LOC: ER 01:12
DX: M25.512 Pain in left shoulder (principal); M25.511 Pain in right shoulder; Z91.030 Bee allergy status; Z91.013 Allergy to seafood; G40.909 Epilepsy, unspecified, not intractable, without status epilepticus; Z20.822 Contact with and (suspected) exposure to COVID-19
CPT/HCPCS: 99284; 87426; 96372; 87804; 73030 ×2; J1885; C9803